=== PATIENT | male | born 1955 | race American Indian/Alaskan Native ===

== ENCOUNTER 2020-03-21 21:14 | Emergency (ER) | payer BC, OTHER ==
[~2020-03-21] VITALS: Ht 167.6 cm; Wt 108.9 kg
--- OUTSIDE RECORDS SUMMARY | ~2020-03-21 | XMS | Encounter Summary ---
Demographics + + + | Address | [address] | | | [place] [address] | + + + | Home Phone | | + + + | Preferred Language | Unknown | + + + | Marital Status | Unknown | + + + | Religion Affiliation | Unknown | + + + | Race | Unknown | + + + | Ethnic Group | Not or | + + + Author + + + | Author | [facility] | | | and [place] | + + + | Organization | [facility] | | | and [place] | + + + | Address | Unknown | + + + | Phone | Unavailable | + + + Support + + +---------+ + | Name | Relationship | Address | Phone | + + +---------+ + | Laurent Meza | ECON | Unknown | | + + +---------+ + Care Team Providers + +------+ + | Care Mutual Fund Sales Agent Name | Role | Phone | + +------+ + | Argentina Garza | PCP | | + +------+ + Encounter Details +--------+ + + + + | Date | Type | Department | Care Team | Description | +--------+ + + + + | 10/30/ | Orders Only | [facility] | Erik Patton | Gross hematuria | | 2020 | | [address] | MD Layne [address] | (Primary Dx) | | | | [place] | [place], [place] | | | | | [address] | [address] | | | | | [phone] | | | +--------+ + + + + Social History + +-------+ +--------+------+ | Tobacco Use | Types | Packs/Day | Years | Date | | | | | Used | | + +-------+ +--------+------+ | Never Smoker | | | | | + +-------+ +--------+------+ + +---+---+---+ | Smokeless Tobacco: | | | | | Never Used | | | | + +---+---+---+ + + + | Sex Assigned at | Date Recorded | | | | + + + | Not on file | | + + + documented as of this encounter Plan of Treatment Not on filedocumented as of this encounter Results Creatinine (11/01/2019 9:01 AM PDT) + + + + + + | Component | Value | Ref Range | Performed | Pathologist | | | | | At | Signature | + + + + + + | Creatinine | 0.99 | 0.70 - 1.30 | [facility] | | | | | mg/dL | [facility] | | | | | | [facility] | | | | | | [facility] - | | | | | | LABORATORY | | + + + + + + | eGFR, | >60Comment: GLOMERULAR | >=60 | [facility] | | | non- | FILTRATION | mL/min/1.73m2 | [facility] | | | [place] | RATE,ESTIMATED | | MEDICAL | | | | mL/min/1.02e1Afnu than | | CENTER - | | | | 60 Chronic kidney | | LABORATORY | | | | disease,if found over a | | | | | | 3-month period.Less than | | | | | | 15 Kidney failureFor | | | | | | | | | | | | Americans,multiply the | | | | | | calculated GFR by 1.21. | | | | | | | | | | + + + + + + + + | Specimen | + + | Blood | + + + + + + + | Performing | Address | City/State/Zipcode | Phone Number | | Organization | | | | + + + + + | [facility] | [address] | [place] | [phone] | | [facility] | | [address] | | | - LABORATORY | | | | + + + + + BUN (11/01/2019 9:01 AM PDT) + +-------+ + + + | Component | Value | Ref Range | Performed | Pathologist | | | | | At | Signature | + +-------+ + + + | BUN | 15 | 9 - 23 mg/dL | [facility] | | | | | | [facility] | | | | | | MEDICAL | | | | | | CENTER - | | | | | | LABORATORY | | + +-------+ + + + + + | Specimen | + + | Blood | + + + + + + + | Performing | Address | City/State/Zipcode | Phone Number | | Organization | | | | + + + + + | [facility] | [address] | [place] | [phone] | | [facility] | | [address] | | | - LABORATORY | | | | + + + + + documented in this encounter Visit Diagnoses + + | Diagnosis | + + | Gross hematuria - Primary | + + documented in this encounter"
--- OUTSIDE RECORDS SUMMARY | ~2020-03-21 | XMS | Encounter Summary ---
Demographics + + + | Address | [address] | | | [place] [address] | + + + | Home Phone | | + + + | Preferred Language | Unknown | + + + | Marital Status | Unknown | + + + | Cheondoism Affiliation | Unknown | + + + | Race | Unknown | + + + | Ethnic Group | Not or | + + + Author + + + | Author | [facility] | | | and [place] | + + + | Organization | [facility] | | | and [...] Team Providers + +------+ + | Care Rotogravure Press Operator Name | Role | Phone | + +------+ + | Argentina Garza | PCP | | + +------+ + Reason for Referral Diagnostic/Screening (Routine) +--------+--------+ + + + + | Status | Reason | Specialty | Diagnoses / | Referred By | Referred To | | | | | Procedures | Contact | Contact | +--------+--------+ + + + + | Closed | | Radiology | Diagnoses | [place], | [address] | | | | | Gross | Erik | [place] | | | | | hematuria | MD Layne | [place], | | | | | Procedures | [address] | [place] [address] | | | | | [address] U[address]gram w | [address] [place] | Phone: | | | | | wo Contrast | [place], [place] | [phone] | | | | | [address] | [address] | Fax: | | | | | SCAN,ABDOMEN | Phone: | [phone] | | | | | AND | [phone] | | | | | | PELVIS,COMBO | Fax: | | | | | | | [phone] | | +--------+--------+ + + + + Reason for Visit + + + | Reason | Comments | + + + | New Patient | enlarged prostate | + + + Evaluate & Treat (Routine) +--------+--------+ + + + + | Status | Reason | Specialty | Diagnoses / | Referred By | Referred To | | | | | Procedures | Contact | Contact | +--------+--------+ + + + + | Closed | | Urology | Diagnoses | Hector, | Cur[place], | | | | | Enlarged | [place], [facility] NURSE | Erik Daarnulfo, | | | | | prostate | [id number] | MD [address] | | | | | Erectile | [address] | [place] | | | | | dysfunction | [place], | [place], [place] | | | | | due to | [place] [address] | [address] Phone: | | | | | diseases | Phone: | [phone] | | | | | classified | [phone] | Fax: | | | | | elsewhere | Fax: | [phone] | | | | | Type 2 | [phone] | | | | | | diabetes | | | | | | | mellitus | | | | | | | with other | | | | | | | specified | | | | | | | complication | | | | | | | (HCC) NEW/ | | | | | | | ENLARGED | | | | | | | PROSTATE, | | | | | | | ED/ HECTOR | | | | | | | Procedures | | | | | | | NEW PATIENT | | | +--------+--------+ + + + + Encounter Details +--------+---------+ + + + | Date | Type | Department | Care Team | Description | +--------+---------+ + + + | 10/19/ | Office | [facility] | Erik Patton | Gross hematuria | | 2020 | Visit | [address] | MD Layne [address] | (Primary Dx); | | | | [place], [place] | [address] [place] | Enlarged prostate; | | | | [address] | [address] | Hyperplasia of | | | | [phone] | | prostate with lower | | | | | | urinary tract | | | | | | symptoms (LUTS); | | | | | | Nocturia | +--------+---------+ + + + Social History + +-------+ [...] + + documented as of this encounter Last Filed Vital Signs + + + + + | Vital Sign | Reading | Time Taken | Comments | + + + + + | Blood Pressure | 110/64 | 10/20/2019 10:45 AM | | | | | PDT | | + + + + + | Pulse | 66 | 10/20/2019 10:45 AM | | | | | PDT | | + + + + + | Temperature | - | - | | + + + + + | Respiratory Rate | 16 | 10/20/2019 10:45 AM | | | | | PDT | | + + + + + | Oxygen Saturation | - | - | | + + + + + | Inhaled Oxygen | - | - | | | Concentration | | | | + + + + + | Weight | 106.1 kg (233 lb | 10/20/2019 10:45 AM | | | | 14.5 oz) | PDT | | + + + + + | Height | 167.6 cm (5' 6") | 10/20/2019 10:45 AM | | | | | PDT | | + + + + + | Body Mass Index | 37.75 | 10/20/2019 10:45 AM | | | | | PDT | | + + + + + documented in this encounter Progress Notes Erik Patton MD - 10/20/2019 11:00 AM PDTFormatting of this note might be differ ent from the original. Chief Complaint Patient presents with New Patient enlarged prostate HPI Gogre Meza is a 64 y.o. male patient of TELMA Stewart here today for evaluation o f enlarged prostate. Over the last month has noticed intermittent episodes of gross hematuria, frequency, urgenc y Hematuria resolved after about a week, but other symptoms have been persistant He denies any dysuria or incontinence Nocturia 0-4 per night Non smoker, No family history of kidney cancer or bladder cancer Started on flomax approx 2 weeks ago and has noticed improvement in symtoms PSA 2.23 Aug 2019 Assessment Gorge was seen today for new patient. Diagnoses and all orders for this visit: Gross hematuria - CT Urogram w wo Contrast; Future Enlarged prostate - POCT Urinalysis Hyperplasia of prostate with lower urinary tract symptoms (LUTS) Nocturia Plan Cysto, cytology, ct urogram 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 Diabetes mellitus type 2, controlled (HCC) ED (erectile dysfunction) Hammer toe Impotence Mixed hyperlipidemia Obesity Onychomycosis Rosacea Past Surgical History Past Surgical History: Procedure Laterality Date APPENDECTOMY Family History: Family History Problem Relation Age of Onset Diabetes Father Social History: Social History Tobacco Use Smoking status: Never Smoker Smokeless tobacco: Never Used No Known Allergies Medications: Current Outpatient Medications: atorvaSTATin (LIPITOR) 10 mg tablet, , Disp: , Rfl: celecoxib (CELEBREX) 100 mg capsule, , Disp: , Rfl: GLIPIZIDE XL 10 MG ER tablet, , Disp: , Rfl: hydroCHLOROthiazide 25 mg tablet, , Disp: , Rfl: JANUMET XR 50-1000 MG TB24, , Disp: , Rfl: lisinopril (PRINIVIL,ZESTRIL) 40 MG tablet, , Disp: , Rfl: SM ASPIRIN ADULT LOW STRENGTH 81 MG EC tablet, , Disp: , Rfl: tamsulosin (FLOMAX) 0.4 mg CAPS, , Disp: , Rfl: ROS Objective BP 110/64 | Pulse 66 | Resp 16 | Ht 1.676 m (5' 6") | Wt 106.1 kg (233 lb 14.5 oz) | B GA 37.75 kg/m General Appearance: Alert, cooperative, no distress, appears stated age Head: Normocephalic, without obvious abnormality, atraumatic Eyes: conjunctiva/corneas clear, EOM's intact Throat: Lips, mucosa, and tongue normal; no gross deformities, mmm Neck: Supple, symmetrical, no adenopathy Lungs: Regular, unlabored breathing MS No CVA tenderness, no spinal tenderness, no scoliosis present Abdomen: Soft, non-tender, no masses Extremities: Extremities normal, atraumatic, no cyanosis, clubbing, or edema Pulses: Radial pulses 2+ and symmetric Skin: Warm and dry Lymph nodes: Cervical and supraclavicular nodes normal Neurologic: Gait normal, CN 2-12 grossly intact; Strength and sensation grossly normal in b ilateral upper and lower extremities Data: REVIEW OF SYSTEMS: [x] Marked All Negative Constitutional Symptoms: [] Fever [] Chills [] Headache [] Change in appetite [] Change in weight [] Change in energy [] Other: Neurological: [] Tremors [] Dizzy Spells [] Numbness/Tingling [] Seizures [] Other: Endocrine: [] Excessive thirst [] Too hot [] Too cold [] Tired/Sluggish Gastrointestinal: [] Abdominal pain [] Nausea/Vomiting [] Indigestion/heartburn [] Change in stoo l size [] Change in stool shape [] Change in stool color [] Pain with swallowing [] Other: Cardiovascular: [] Chest Pain [] Rapid heart rate [] High blood pressure [] Other: Integumentary: [] Skin rash [] Boils [] Persistent itch [] Other: Musculoskeletal: [] Neck Pain [] Joint swelling/pain [] Back pain [] Bone pain [] Other: Respiratory: [] Wheezing [] Frequent cough [] Shortness of breath [] Other: Hematologic/Lymphatic: [] Swollen glands [] Blood clotting issues [] Prior blood transfusions []Other: Psychologic: Are you generally satisfied with your life? yes Do you feel severely depressed? no Have you considered suicide? no Habits: Do you smoke? no Results for orders placed or performed in visit on 10/20/19 POCT Urinalysis Result Value Ref Range Color, UA, POC Yellow Yellow, Light Yellow Clarity, UA, POC Clear Glucose, UA, POC Negative Negative Bilirubin, UA, POC Negative Negative Ketones, UA, POC Negative Negative, 100 mg/dL Specific [place], UA, POC 1.015 1.001 - 1.030 Blood, UA, POC Negative Negative pH, UA, POC 6.0 5.0, 6.0, 7.0, 8.0, 5.5, 6.5, 7.5 Protein, UA, POC Negative Negative Urobilinogen, UA, POC 0.2 0.2, Negative, Normal, < 0.2 mg/dL, 1 mg/dL, < 0.2 E.U./dl, 1.0 E.U./dL, 0.2 mg/dL Nitrite, UA, POC Negative Negative Leukocyte Esterase, UA, POC Negative Negative Remark No results found for: TELMA Schmidt's notes were reviewed in clinic today. Return for next available cysto.. This document was generated in part using voice recognition software. Frequent wrong word or sound-alike substitutions may have occurred due to the inherent limitations of the voice recognition software. Although I have attempted to edit the content, I have not thoroughly proofread this note, and travel counselor automobile club errors are very likely to occur. CC: TELMA Stewart documented in this encounter Plan of Treatment Not on filedocumented as of this encounter Procedures + +--------+ + + + | Procedure Name | Priori | Date/Time | Associated Diagnosis | Comments | | | ty | | | | + +--------+ + + + | POCT URINALYSIS, | Routin | 10/20/2019 | Enlarged prostate | Results for this | | AUTO WITH CONF | e | 10:49 AM | | procedure are in the | | | | PDT | | results section. | + +--------+ + + + documented in this encounter Results CT Urogram w wo Contrast (11/01/2019 10:00 AM PDT) + + | Specimen | + + | | + + + + + | Impressions | Performed At | + + + | 1. No suspicious renal collecting system mass, calculi, | [facility] | | hydronephrosis, or hydroureter. 2. Bilateral pars defects of L5 | | | with grade 1 anterolisthesis of L5 over S1. Otherwise multilevel, | | | mild to moderate degenerative changes of the lumbar spine with | | | multilevel moderate and severe neural foraminal narrowing. 3. | | | Fat-containing right inguinal hernia without inflammation. 4. | | | Diverticulosis. Dictated and Signed by: Patrick Marrero MD | | | Electronically signed: 11/01/2019 12:44 PM | | + + + + + + | Narrative | Performed At | + + + | CT UROGRAM W WO CONTRAST 11/01/2019 9:50 AM HISTORY: hematuria. | [facility] | | COMPARISON: None. PROTOCOL: Axial images of the abdomen and | | | pelvis were obtained before and after administration of 125 mL | | | Omnipaque 350. Coronal and sagittal reformations were acquired. | | | FINDINGS: LUNG BASE: Lung bases are clear. HEPATOBILIARY: The | | | liver demonstrates normal parenchyma. The gallbladder is normal. No | | | evidence of intrahepatic or extrahepatic biliary ductal dilatation. | | | SPLEEN: Normal parenchyma. No evidence of mass or splenomegaly. | | | PANCREASE: Normal parenchyma. No evidence of pancreatic ductal | | | dilation. ADRENAL GLANDS: No evidence of nodule, mass or suspicious | | | thickening. KIDNEYS: Subcentimeter hypodensity in the mid/upper pole | | | of the right kidney is too small to better characterize. No | | | suspicious renal pelvic or ureteral mucosal thickening or mass | | | formation. Ureters are well opacified with contrast. No suspicious | | | renal mass or calculi. BOWEL: The stomach is normal. Imaged small | | | bowel and colon demonstrate no acute findings. No evidence of | | | dilatation to suggest obstruction or abnormal bowel wall thickening. | | | Severe sigmoid and descending colonic diverticulosis without | | | inflammatory changes. VASCULATURE: Aorta is nonaneurysmal and without | | | evidence of dissection. LYMPH NODES: No enlarged lymph nodes are | | | visualized within the omentum or retroperitoneum. PERITONEUM: There | | | is no evidence for free fluid or free air. BLADDER: Unremarkable. | | | REPRODUCTIVE: Mild prosthetic gland hyperplasia. SOFT TISSUES: | | | Noninflamed fat-containing bilateral inguinal hernias. BONES: There | | | are no acute osseous abnormalities. Bilateral pars defects of L5 with | | | grade 1 anterolisthesis of L5 over S1. Otherwise multilevel, mild to | | | moderate degenerative changes of the lumbar spine with multilevel | | | moderate and severe neural foraminal narrowing. Chronic appearing | | | anterior wedge compression upon the fracture T12. | | + + + + + | Procedure Note | + + | Rafael, Rad Results In - 11/01/2019 12:[address] UROGRAM W WO CONTRAST 11/01/2019 9:50 | | AMHISTORY: hematuria.COMPARISON: None.PROTOCOL: Axial images of the abdomen and pelvis | | were obtained before and afteradministration of 125 mL Omnipaque 350. Coronal and | | sagittal reformationswere acquired.FINDINGS:LUNG BASE: Lung bases are clear. | | HEPATOBILIARY: The liver demonstrates normal parenchyma. The gallbladder isnormal. No | | evidence of intrahepatic or extrahepatic biliary ductal dilatation.SPLEEN: Normal | | parenchyma. No evidence of mass or splenomegaly.PANCREASE: Normal parenchyma. No | | evidence of pancreatic ductal dilation.ADRENAL GLANDS: No evidence of nodule, mass or | | suspicious thickening.KIDNEYS: Subcentimeter hypodensity in the mid/upper pole of the | | right kidney istoo small to better characterize. No suspicious renal pelvic or ureteral | | mucosalthickening or mass formation. Ureters are well opacified with contrast. | | Nosuspicious renal mass or calculi.BOWEL: The stomach is normal. Imaged small bowel and | | colon demonstrate no acutefindings. No evidence of dilatation to suggest obstruction or | | abnormal bowelwall thickening. Severe sigmoid and descending colonic diverticulosis | | withoutinflammatory changes.VASCULATURE: Aorta is nonaneurysmal and without evidence of | | dissection. LYMPH NODES: No enlarged lymph nodes are visualized within the omentum | | orretroperitoneum. PERITONEUM: There is no evidence for free fluid or free air.BLADDER: | | Unremarkable.REPRODUCTIVE: Mild prosthetic gland hyperplasia. SOFT TISSUES: Noninflamed | | fat-containing bilateral inguinal hernias.BONES: There are no acute osseous | | abnormalities. Bilateral pars defects of L5with grade 1 anterolisthesis of L5 over S1. | | Otherwise multilevel, mild tomoderate degenerative changes of the lumbar spine with | | multilevel moderate andsevere neural foraminal narrowing. Chronic appearing anterior | | wedge compressionupon the fracture T12.IMPRESSION: 1. No suspicious renal collecting | | system mass, calculi, hydronephrosis, orhydroureter.2. Bilateral pars defects of L5 | | with grade 1 anterolisthesis of L5 over S1.Otherwise multilevel, mild to moderate | | degenerative changes of the lumbar spinewith multilevel moderate and severe neural | | foraminal narrowing. 3. Fat-containing right inguinal hernia without inflammation.4. | | Diverticulosis.Dictated and Signed by: Patrick Marrero MD Electronically signed: | | 11/01/2019 12:44 PM | |PERITONEUM: There is no evidence for free fluid or free air. | |BLADDER: Unremarkable. | |REPRODUCTIVE: Mild prosthetic gland hyperplasia. | |SOFT TISSUES: Noninflamed fat-containing bilateral inguinal hernias. | |BONES: There are no acute osseous abnormalities. Bilateral pars defects of L5 | |with grade 1 anterolisthesis of L5 over S1. Otherwise multilevel, mild to | |moderate degenerative changes of the lumbar spine with multilevel moderate and | |severe neural foraminal narrowing. Chronic appearing anterior wedge compression | |upon the fracture T12. | | | |IMPRESSION: | |1. No suspicious renal collecting system mass, calculi, hydronephrosis, or | |hydroureter. | |2. Bilateral pars defects of L5 with grade 1 anterolisthesis of L5 over S1. | |Otherwise multilevel, mild to moderate degenerative changes of the lumbar spine | |with multilevel moderate and severe neural foraminal narrowing. | |3. Fat-containing right inguinal hernia without inflammation. | |4. Diverticulosis. | | | |Dictated and Signed by: Patrick Marrero MD | | Electronically signed: 11/01/2019 12:44 PM | + + + +---------+ + + | Performing | Address | City/State/Zipcode | Phone Number | | Organization | | | | + +---------+ + + | [facility] | | | | + +---------+ + + POCT Urinalysis (10/20/2019 10:49 AM PDT) + + + + + + | Component | Value | Ref Range | Performed | Pathologist | | | | | At | Signature | + + + + + + | Color, UA, | Yellow | Yellow, Light | | | | POC | | Yellow | | | + + + + + + | Clarity, | Clear | | | | | UA, POC | | | | | + + + + + + | Glucose, | Negative | Negative | | | | UA, POC | | | | | + + + + + + | Bilirubin, | Negative | Negative | | | | UA, POC | | | | | + + + + + + | Ketones, | Negative | Negative, 100 | | | | UA, POC | | mg/dL | | | + + + + + + | Specific | 1.015 | 1.001 - 1.030 | | | | [place], | | | | | | UA, POC | | | | | + + + + + + | Blood, UA, | Negative | Negative | | | | POC | | | | | + + + + + + | pH, UA, POC | 6.0 | 5.0, 6.0, 7.0, | | | | | | 8.0, 5.5, 6.5, | | | | | | 7.5 | | | + + + + + + | Protein, | Negative | Negative | | | | UA, POC | | | | | + + + + + + | Urobilinoge | 0.2 | 0.2, Negative, | | | | n, UA, POC | | Normal, < 0.2 | | | | | | mg/dL, 1 mg/dL, | | | | | | < 0.2 E.U./dl, | | | | | | 1.0 E.U./dL, | | | | | | 0.2 mg/dL | | | + + + + + + | Nitrite, | Negative | Negative | | | | UA, POC | | | | | + + + + + + | Leukocyte | Negative | Negative | | | | Esterase, | | | | | | UA, POC | | | | | + + + + + + | Remark | | | | | + + + + + + + + | Specimen | + + | Urine | + + documented in this encounter Visit Diagnoses + + | Diagnosis | + + | Gross hematuria - Primary | + + | Enlarged prostate Hypertrophy of prostate without urinary obstruction and other lower | | urinary tract symptoms (LUTS) | + + | Hyperplasia of prostate with lower urinary tract symptoms (LUTS) Unspecified | | hyperplasia of prostate with urinary obstruction and other lower urinary tract symptoms | | (LUTS) | + + | Nocturia | + + documented in this encounter
--- OUTSIDE RECORDS SUMMARY | ~2020-03-21 | XMS | Encounter Summary ---
Demographics + + + | Address | [address] | | | [place] [address] | + + + | Home Phone | | + + + | Preferred Language | Unknown | + + + | Marital Status | Unknown | + + + | Adventism Affiliation | Unknown | + + + | Race | Unknown | + + + | Ethnic Group | Not or | + + + Author + + + | Author | [facility] | | | and [place] | + + + | Organization | [facility] | | | and [...] Team Providers + +------+ + | Care Flight Test Engineer Name | Role | Phone | + [...] | | Gross | Erik | W Amado | | | | | hematuria | MD Layne | [place], | | | | | Procedures | [address] | [place] [address] | | | | | [address] | [address] [place] | Phone: | | | | | wo Contrast | [place], [place] | [phone] | | | | | [address] | [address] | Fax: | | | | | SCAN,ABDOMEN | Phone: | [phone] | | | | | AND | [phone] | | | | | | PELVIS,COMBO | Fax: | | | | | | | [phone] | | +--------+--------+ + + + + Reason for Visit Diagnostic/Screening (Routine) +--------+--------+ + + + + | Status | Reason | Specialty | Diagnoses / | Referred By | Referred To | | | | | Procedures | Contact | Contact | +--------+--------+ + + + + | Closed | | Radiology | Diagnoses | [place], | [address] | | | | | Gross | Erik | W Amado | | | | | hematuria | MD Layne | [place], | | | | | Procedures | [address] | [place] [address] | | | | | CT Urogram w | AVE [place] | Phone: | | | | | wo Contrast | [place], [place] | [phone] | | | | | [address] | [address] | Fax: | | | | | SCAN,ABDOMEN | Phone: | [phone] | | | | | AND | [phone] | | | | | | PELVIS,COM[place] | Fax: | | | | | | | [phone] | | +--------+--------+ + + + + Encounter Details +--------+ + + + + | Date | Type | Department | Care Team | Description | +--------+ + + + + | 10/31/ | Hospital | [facility] | Erik Patton | Bill aquino | | 2020 | Encounter | [address] | MD Layne [address] | | | | | [place], | [place] | | | | | [place] [address] | [id number] | | | | | [phone] | | | +--------+ + + + [...] + + documented as of this encounter Medications at Time of Discharge + + + +---------+ + + | Medication | Sig | Dispensed | Refills | Start | End Date | | | | | | Date | | + + + +---------+ + + | atorvaSTATin | | | 0 | //20 | | | (LIPITOR) 10 mg | | | | 20 | | | tablet | | | | | | + + + +---------+ + + | celecoxib | 200 mg . | | 0 | /20 | | | (CELEBREX) 200 mg | | | | 20 | | | capsule | | | | | | + + + +---------+ + + | fluticasone | | | 0 | //20 | | | (FLONASE) 50 | | | | 20 | | | mcg/nasal spray | | | | | | + + + +---------+ + + | GLIPIZIDE XL 10 MG | | | 0 | //20 | | | ER tablet | | | | 20 | | + + + +---------+ + + | | | | 0 | 03/10/20 | | | hydroCHLOROthiazide | | | | 20 | | | 25 mg tablet | | | | | | + + + +---------+ + + | JANUMET XR 50-1000 | | | 0 | 03/10/20 | | | MG TB24 | | | | 20 | | + + + +---------+ + + | lisinopril | | | 0 | 03/10/20 | | | (PRINIVIL,ZESTRIL) | | | | 20 | | | 40 MG tablet | | | | | | + + + +---------+ + + | SM ASPIRIN ADULT | | | 0 | 03/10/20 | | | LOW STRENGTH 81 MG | | | | 20 | | | EC tablet | | | | | | + + + +---------+ + + | tamsulosin | | | 0 | 10/17/19 | | | (FLOMAX) 0.4 mg CAPS | | | | 20 | | + + + +---------+ + + | TOPROL XL 100 MG | | | 0 | 10/27/19 | | | ER tablet | | | | 20 | | + + + +---------+ + + documented as of this encounter Plan of Treatment Not on filedocumented as of this encounter Procedures + +--------+ + + + | Procedure Name | Priori | Date/Time | Associated Diagnosis | Comments | | | ty | | | | + +--------+ + + + | CT UROGRAM W WO | Routin | 11/01/2019 | Gross hematuria | Results for this | | CONTRAST | e | 10:00 AM | | procedure are in the | | | | PDT | | results section. | + +--------+ + + + | BUN | Routin | 11/01/2019 | Gross hematuria | Results for this | | | e | 9:01 AM | | procedure are in the | | | | PDT | | results section. | + +--------+ + + + | CREATININE | Routin | 11/01/2019 | Gross hematuria | Results for this | | | e | 9:01 AM | | procedure are in the [...] | | | + +---------+ + + Creatinine (11/01/2019 9:01 AM PDT) + + + + + + | Component | Value | Ref Range | Performed | Pathologist | | | | | At | Signature | + + + + + + | Creatinine | 0.99 | 0.70 - 1.30 | [facility] | | | | | mg/dL | [facility] | | | | | | [facility] | | | | | | C[facility] - | | | | | | LABORATORY | | + + + + + + | eGFR, | >60Comment: GLOMERULAR | >=60 | [facility] | | | non- | FILTRATION | mL/min/1.73m2 | [facility] | | | Swiss | RATE,ESTIMATED | | MEDICAL | | | | mL/min/1.96a3Rild than | | CENTER - | | [...] | + + + + + | [facility] | [address] | [place] | [phone] | | [facility] | | [address] | | | - LABORATORY | | | | + + + + + BUN (11/01/2019 9:01 AM PDT) + +-------+ + + + | Component | Value | Ref Range | Performed | Pathologist | | | | | At | Signature | + +-------+ + + + | BUN | 15 | 9 - 23 mg/dL | [facility] | | | | | | [facility] | | | | [...] [address] | [place] | [phone] | | [facility] | | [address] | | | - LABORATORY | | | | + + + + + documented in this encounter Visit Diagnoses + + | Diagnosis | + + | Gross hematuria | + + documented in this encounter Administered Medications + +--------+ +---------+------+------+ | Medication Order | MAR | Action | Dose | Rate | Site | | | Action | Date | | | | + +--------+ +---------+------+------+ | iohexol (OMNIPAQUE 350) 350 | Given | 11/01/19 | 125 mLs | | | | mg/mL injection 125 mL 125 mL, | | 20 10:00 | | | | | Intravenous, ONCE PRN, Other, | | AM PDT | | | | | Starting 11/01/19 at 1000, For | | | | | | | 1 dose | | | | | | + +--------+ +---------+------+------+ +---+---+ | | | +---+---+ + +------+ +--------+-------+---+ | sodium chloride 0.9% (NS) bolus | Push | 11/01/19 | 85 mLs | 5100 | | | 85 mL 85 mL, Intravenous, | | 20 10:00 | | mL/hr | | | Administer over 1 Minutes, ONCE | | AM PDT | | | | | PRN, FOR CT IMAGING STUDY, | | | | | | | Starting 11/01/19 at 1000, For | | | | | | | 1 dose | | | | | | + +------+ +--------+-------+---+ +---+---+ | | | +---+---+ documented in this encounter"
--- OUTSIDE RECORDS SUMMARY | ~2020-03-21 | XMS | Encounter Summary ---
Demographics + + + | Address | [address] | | | [place] [address] | + + + | Home Phone | | + + + | Preferred Language | Unknown | + + + | Marital Status | Unknown | + + + | Latter Day Affiliation | Unknown | + + + | Race | Unknown | + + + | Ethnic Group | Not or | + + + Author + + + | Author | [facility] | | | and [place]idiana | + + + | Organization | [facility] | | | [...] Team Providers + +------+ + | Care Esthetic Dermatologist Name | Role | Phone | + +------+ + | Argentina Garza | PCP | | + +------+ + Reason for Visit + + + | Reason | Comments | + + + | Follow-up | Cystoscopy for gross hematuria | + + + Follow Up (Routine) +--------+--------+ + + + + | Status | Reason | Specialty | Diagnoses / | Referred By | Referred To | | | | | Procedures | Contact | Contact | +--------+--------+ + + + + | Closed | | Urology | Diagnoses | Greg, | Abdi, | | | | | Enlarged | TELMA Elaine | Erik Tillman, | | | | | prostate | [address] | MD [address] | | | | | CYSTOSCOPY | OXANA SOTOMAYOR | [place] | | | | | (Hematuria) | [place], | [place] | | | | | [place] for | [place] [address] | [address] Phone: | | | | | Cytology// | Phone: | [phone] | | | | | CT prior | [phone] | Fax: | | | | | Procedures | Fax: | [phone] | | | | | OFFICE VISIT | [phone] | | | | | | EXTENDED | | | +--------+--------+ + + + + Encounter Details +--------+---------+ + + + | Date | Type | Department | Care Team | Description | +--------+---------+ + + + | 10/31/ | Office | [facility] | Erik Patton | Abnormal urinalysis | | 2020 | Visit | [address] | MD Layne [address] | (Primary Dx); Gross | | | | [place] | [address] [place] | hematuria | | | | [address] | [address] | | | | | [phone] | | | +--------+---------+ + + + Social History [...] + + + | Blood Pressure | 112/62 | 11/01/2019 10:51 AM | | | | | PDT | | + + + + + | Pulse | 60 | 11/01/2019 10:51 AM | | | | | PDT | | + + + + + | Temperature | - | - | | + + + + + | Respiratory Rate | 16 | 11/01/2019 10:51 AM | | | | | PDT | | + + + + + | Oxygen Saturation | - | - | | + + + + + | Inhaled Oxygen | - | - | | | Concentration | | | | + + + + + | Weight | 106.1 kg (233 lb | 11/01/2019 10:51 AM | | | | 14.5 oz) | PDT | | + + + + + | Height | 167.6 cm (5' 6") | 11/01/2019 10:51 AM | | | | | PDT | | + + + + + | Body Mass Index | 37.75 | 11/01/2019 10:51 AM | | | | | PDT | | + + + + + documented in this encounter Progress Notes Erik Patton MD - 11/01/2019 11:00 AM PDTFormatting of this note might be differ ent from the original. Chief Complaint Patient presents with Follow-up Cystoscopy for gross hematuria HPI Gorge Meza is a 64 y.o. male patient of TELMA Stewart here today for a Cystoscopy for gross hematuria. Consent form signed & time out form completed Over the last month has noticed intermittent episodes of gross hematuria, frequency, urgenc y Hematuria resolved after about a week, but other symptoms have been persistant He denies any dysuria or incontinence Nocturia 0-4 per night Non smoker, No family history of kidney cancer or bladder cancer Started on flomax approx 2 weeks ago and has noticed improvement in symtoms Cystoscopy Preprocedure timeout was performed. The patient's genitals were then prepped and draped us ual fashion. 10 mL's of viscous lidocaine was instilled per urethra. The scope was then in troduced into the urethra. The anterior urethra was grossly normal. The posterior urethra w as noted for very mild lateral lobe coaptation. Upon entering the bladder mayen cystoscopy was performed. Bilateral UOs were identified in the normal anatomic position effluxing clear u rine.1-2+ trabeculations were noted. There are no mucosal abnormalities seen. The scope wa s then removed and the patient tolerated the procedure well. PSA 2.23 Aug 2019 Assessment Gorge was seen today for follow-up. Diagnoses and all orders for this visit: Abnormal urinalysis - POCT Urinalysis - Urinalysis, Microscopic Only, with Culture if Indicated Gross hematuria - Medical Cytology Plan Negative cystoscopic evaluation of the bladder. Will await final review of the patient's C T scan from radiology however I do not see any significant causes for the patient's hematuri a. 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 Diabetes mellitus type 2, controlled (HCC) ED (erectile dysfunction) Hammer toe Impotence Mixed hyperlipidemia Obesity Onychomycosis Rosacea Past Surgical History Past Surgical History: Procedure Laterality Date APPENDECTOMY Family History: Family History Problem Relation Age of Onset Diabetes Father Prostate cancer Neg Hx Social History: Social History Socioeconomic History Marital status: Unknown Spouse name: Not on file Number of children: Not on file Years of education: Not on file Highest education level: Not on file Tobacco Use Smoking status: Never Smoker Smokeless tobacco: Never Used No Known Allergies Medications: Current Outpatient Medications: atorvaSTATin (LIPITOR) 10 mg tablet, , Disp: , Rfl: celecoxib (CELEBREX) 100 mg capsule, , Disp: , Rfl: fluticasone (FLONASE) 50 mcg/nasal spray, , Disp: , Rfl: GLIPIZIDE XL 10 MG ER tablet, , Disp: , Rfl: hydroCHLOROthiazide 25 mg tablet, , Disp: , Rfl: JANUMET XR 50-1000 MG TB24, , Disp: , Rfl: lisinopril (PRINIVIL,ZESTRIL) 40 MG tablet, , Disp: , Rfl: SM ASPIRIN ADULT LOW STRENGTH 81 MG EC tablet, , Disp: , Rfl: tamsulosin (FLOMAX) 0.4 mg CAPS, , Disp: , Rfl: TOPROL XL 100 MG ER tablet, , Disp: , Rfl: No current facility-administered medications for this visit. ROS Objective BP 112/62 | Pulse 60 | Resp 16 | Ht 1.676 m (5' 6") | Wt 106.1 kg (233 lb 14.5 oz) | B AK 37.75 kg/m General Appearance: Alert, cooperative, no [...] b ilateral upper and lower extremities Data: Results for orders placed or performed in visit on 11/01/19 Urinalysis, Microscopic Only, with Culture if Indicated Result Value Ref Range White Blood Cells, Urine 0-2 0 - 2 /HPF White Blood Cell Clumps, Urine Few (A) None Seen /HPF RBC UA 0-2 0 - 2 /HPF Squamous Epithelial Cells, Urine 0-2 0 - 2 /LPF BACTERIA UA Negative Negative /HPF URINE COMMENT Urine Culture Not Indicated POCT Urinalysis Result Value Ref Range Color, UA, POC Light Yellow Yellow, Light Yellow Clarity, UA, POC Clear Glucose, UA, POC Negative Negative Bilirubin, UA, POC Negative Negative Ketones, UA, POC Negative Negative, 100 mg/dL Specific [place], UA, POC 1.005 1.001 - 1.030 Blood, UA, POC Trace Intact (A) Negative pH, UA, POC 5.5 5.0, 6.0, 7.0, 8.0, 5.5, 6.5, 7.5 Protein, UA, POC Negative Negative Urobilinogen, UA, POC 0.2 0.2, Negative, Normal, < 0.2 mg/dL, 1 mg/dL, < 0.2 E.U./dl, 1.0 E.U./dL, 0.2 mg/dL Nitrite, UA, POC Negative Negative Leukocyte Esterase, UA, POC Negative Negative Remark Lab Results Component Value Date CREA 0.99 11/01/2019 TELMA Stewart's notes were reviewed in clinic today. No follow-ups on file.. This document was generated in part using voice recognition software. Frequent wrong word or sound-alike substitutions may have occurred due to the inherent limitations of the voice recognition software. Although I have attempted to edit the content, I have not thoroughly proofread this note, and school commissioner errors are very likely to occur. CC: TELMA Stewart documented in this encounter Plan of Treatment Not on filedocumented as of this encounter Procedures + +--------+ + + + | Procedure Name | Priori | Date/Time | Associated Diagnosis | Comments | | | ty | | | | + +--------+ + + + | URINALYSIS, | Routin | 11/01/2019 | Abnormal | Results for this | | MICROSCOPIC ONLY, | e | 11:15 AM | urinalysis | procedure are in the | | WITH CULTURE IF | | PDT | | results section. | | INDICATED | | | | | + +--------+ + + + | POCT URINALYSIS, | Routin | 11/01/2019 | Abnormal | Results for this | | AUTO WITH CONF | e | 11:14 AM | urinalysis | procedure are in the | | | | PDT | | results section. | + +--------+ + + + | MEDICAL CYTOLOGY | Routin | 11/01/2019 | Gross hematuria | Results for this | | | e | 12:00 AM | | procedure are in the | | | | PDT | | results section. | + +--------+ + + + documented in this encounter Results Urinalysis, Microscopic Only, with Culture if Indicated (11/01/2019 11:15 AM PDT) + + + + + + | Component | Value | Ref Range | Performed | Pathologist | | | | | At | Signature | + + + + + + | White Blood | 0-2 | 0 - 2 /HPF | [facility] | | | Cells, | | | [facility] | | | Urine | | | MEDICAL | | | | | | CENTER - | | | | | | LABORATORY | | + + + + + + | White Blood | Few (A) | None Seen /HPF | [facility] | | | Cell | | | [facility] | | | Clumps, | | | MEDICAL | | | Urine | | | CENTER - | | | | | | LABORATORY | | + + + + + + | Red Blood | 0-2 | 0 - 2 /HPF | [facility] | | | Cells, | | | [facility] | | | Urine | | | MEDICAL | | | | | | CENTER - | | | | | | LABORATORY | | + + + + + + | Squamous | 0-2 | 0 - 2 /LPF | [facility] | | | Epithelial | | | [facility] | | | Cells, | | | MEDICAL | | | Urine | | | CENTER - | | | | | | LABORATORY | | + + + + + + | Bacteria, | Negative | Negative /HPF | [facility] | | | Urine | | | [facility] | | | | | | MEDICAL | | | | | | CENTER - | | | | | | LABORATORY | | + + + + + + | Urine | Urine Culture Not | | [facility] | | | Comment | Indicated | | [facility] | | | | | | MEDICAL | | | | | | CENTER - | | | | | | LABORATORY | | + + + + + + + + | Specimen | + + | Urine - Urine | | specimen obtained by | | clean catch | | procedure (specimen) | + + + + + + + | Performing | Address | City/State/Zipcode | Phone Number | | Organization | | | | + + + + + | [facility] | [address] | [place] | [phone] | | [facility] | | [address] | | | - LABORATORY | | | | + + + + + POCT Urinalysis (11/01/2019 11:14 AM PDT) + + + + + + | Component | Value | Ref Range | Performed | Pathologist | | | | | At | Signature | + + + + + + | Color, UA, | Light Yellow | Yellow, Light | | | [...] + + + + | Specific | 1.005 | 1.001 - 1.030 | | | | [place], | | | | | | UA, POC | | | | | + + + + + + | Blood, UA, | Trace Intact (A) | Negative | | | | POC | | | | | + + + + + + | pH, UA, POC | 5.5 | 5.0, 6.0, 7.0, | | | [...] + + | Urine | + + Medical Cytology (11/01/2019 12:00 AM PDT) + + | Specimen | + + | Urine - Urine | | specimen obtained by | | clean catch | | procedure (specimen) | + + + + + | Narrative | Performed At | + + + | ORDERING PHYSICIAN: Erik Patton MD PATIENT NAME: | [facility] | | GORGE MEZA GENDER: Rj : 1955 SPECIMEN(S): A | [facility] | | URINE, CLEAN CATCH GROSS DESCRIPTION: 90 ML OF CLEAR, YELLOW | | | FLUID IN CYTOLYT CLINICAL HISTORY: NO CLINICAL DATA PROVIDED | | | LABORATORY PREPARATIONS: 1 MONOLAYER CYTOLOGIC INTERPRETATION: | | | Urine, Voided: Negative for High Grade Urothelial Carcinoma ([facility]). | | | Acute inflammatory / cystitis pattern present. DESCRIPTION: The | | | preparation is adequately cellular. Numerous acute inflammatory cells | | | are present. Cytologic features of high grade urothelial carcinoma | | | are absent. SPECIMEN ADEQUACY: Satisfactory for Evaluation | | | PERFORMING LABORATORY: Technical preparation was performed by [facility] | | | [employer] [address] [place] [address] and | | | [employer] | | | [address]. Professional interpretation was performed by [facility] | | | Diagnostics - [address] | | | [place] [address] (Collections Manager: Rei Humphrey MD.; | | | [facility]#:[id number]).8 Diagnostician: Lorraine OSORIO ([facility]) | | | Patient Intake Representative Diagnostician: Coery Desouza MD Pathologist | | | Electronically Signed 11/03/2019 | | + + + + +---------+ + + | Performing | Address | City/State/Zipcode | Phone Number | | Organization | | | | + +---------+ + + | [facility] | | | | | [facility] | | | | + +---------+ + + documented in this encounter Visit Diagnoses + + | Diagnosis | + + | Abnormal urinalysis - Primary Other nonspecific finding on examination of urine | + + | Gross hematuria | + + documented in this encounter
--- OUTSIDE RECORDS SUMMARY | ~2020-03-21 | XMS | Clinical Summary ---
Demographics + + + | Address | [address] | | | [place] [address] | + + + | Home Phone | | + + + | Preferred Language | Unknown | + + + | Marital Status | Unknown | + + + | Taoism Affiliation | Unknown | + + + | Race | Unknown | + + + | Ethnic Group | Not or | + + + Author + + + | Author | [facility] | | | and [place] | + + + | Organization | [facility] | | | [...] Team Providers + +------+ + | Care Ceiling Cleaner Name | Role | Phone | + +------+ + | Argentina GarzaP | PCP | | + +------+ + Allergies No Known Allergies Medications + + + +---------+------+------+-------+ | Medication | Sig | Dispensed | Refills | Star | End | Statu | | | | | | t | Date | s | | | | | | Date | | | + + + +---------+------+------+-------+ | SM ASPIRIN ADULT | | | 0 | 03/1 | | Activ | | LOW STRENGTH 81 MG | | | | 0/20 | | e | | EC tablet | | | | 20 | | | + + + +---------+------+------+-------+ | atorvaSTATin | | | 0 | 02/0 | | Activ | | (LIPITOR) 10 mg | | | | 4/20 | | e | | tablet | | | | 20 | | | + + + +---------+------+------+-------+ | celecoxib | 200 mg . | | 0 | 02/0 | | Activ | | (CELEBREX) 200 mg | | | | 4/20 | | e | | capsule | | | | 20 | | | + + + +---------+------+------+-------+ | GLIPIZIDE XL 10 MG | | | 0 | 03/1 | | Activ | | ER tablet | | | | 0/20 | | e | | | | | | 20 | | | + + + +---------+------+------+-------+ | | | | 0 | 03/1 | | Activ | | hydroCHLOROthiazide | | | | 0/20 | | e | | 25 mg tablet | | | | 20 | | | + + + +---------+------+------+-------+ | lisinopril | | | 0 | 03/1 | | Activ | | (PRINIVIL,ZESTRIL) | | | | 0/20 | | e | | 40 MG tablet | | | | 20 | | | + + + +---------+------+------+-------+ | JANUMET XR 50-1000 | | | 0 | 03/1 | | Activ | | MG TB24 | | | | 0/20 | | e | | | | | | 20 | | | + + + +---------+------+------+-------+ | tamsulosin | | | 0 | 03/3 | | Activ | | (FLOMAX) 0.4 mg CAPS | | | | 1/20 | | e | | | | | | 20 | | | + + + +---------+------+------+-------+ | fluticasone | | | 0 | 04/1 | | Activ | | (FLONASE) 50 | | | | 0/20 | | e | | mcg/nasal spray | | | | 20 | | | + + + +---------+------+------+-------+ | TOPROL XL 100 MG | | | 0 | 04/1 | | Activ | | ER tablet | | | | 0/20 | | e | | | | | | 20 | | | + + + +---------+------+------+-------+ | sildenafil | Take 1 tablet by | 20 | 1 | 07/0 | 07/0 | Activ | | (VIAGRA) 100 MG | mouth as needed for | tablet | | 6/20 | 6/20 | e | | tablet | Erectile | | | 20 | 21 | | | | Dysfunction. | | | | | | + + + +---------+------+------+-------+ | | Tri-Mix X: Inject 10 | 5 mL | 3 | 07/0 | | Activ | | Xtsmv-Mjozyhvaoclf-W | units into the base | | | 7/20 | | e | | lprostadil 12-1-0.01 | of penis, increase | | | 20 | | | | MG/ML SOLN | dose by 5-10 units | | | | | | | | to reach desired | | | | | | | | effect. Max dose 50 | | | | | | | | units.. | | | | | | + + + +---------+------+------+-------+ | tamsulosin | Take 1 capsule by | 60 | 11 | 07/0 | 08/0 | Expir | | (FLOMAX) 0.4 mg CAPS | mouth 2 times daily | capsule | | 6/20 | 5/20 | ed | | | for 30 days. | | | 20 | 20 | | + + + +---------+------+------+-------+ Active Problems No known active problems Encounters +--------+ + + + + | Date | Type | Specialty | Care Team | Description | +--------+ + + + + | 01/22/ | Telephone | Urology | Erik Patton | Medication Question | | 2019 | | | MD [place] | | +--------+ + + + + | 01/21/ | Office | Urology | Erik Patton | Erectile | | 2019 | Visit | | MD [place] | dysfunction, | | | | | | unspecified erectile | | | | | | dysfunction type | | | | | | (Primary Dx); | | | | | | Hyperplasia of | | | | | | prostate with lower | | | | | | urinary tract | | | | | | symptoms (LUTS); | | | | | | Nocturia | +--------+ + + + + from Last 3 Months Family History + + +------+ + | Medical History | Relation | Name | Comments | + + +------+ + | Diabetes | Father | | | + + +------+ + | Prostate cancer | Neg Hx | | | + + +------+ + + +------+ + + | Relation | Name | Status | Comments | + +------+ + + | Father | | | | + +------+ + + | Mother | | | | + +------+ + + Social History + +-------+ +--------+------+ [...] on file | | + + + Last Filed Vital Signs + + + + + | Vital Sign | Reading | Time Taken | Comments | + + + + + | Blood Pressure | 160/80 | 01/22/2020 1:00 PM | | | | | PDT | | + + + + + | Pulse | 80 | 01/22/2020 1:00 PM | | | | | PDT | | + + + + + | Temperature | - | - | | + + + + + | Respiratory Rate | 16 | 01/22/2020 1:00 PM | | | | | PDT | | + + + + + | Oxygen Saturation | - | - | | + + + + + | Inhaled Oxygen | - | - | | | Concentration | | | | + + + + + | Weight | 105.5 kg (232 lb 9.4 | 01/22/2020 1:00 PM | | | | oz) | PDT | | + + + + + | Height | 167.6 cm (5' 6") | 01/22/2020 1:00 PM | | | | | PDT | | + + + + + | Body Mass Index | 37.54 | 01/22/2020 1:00 PM | | | | | PDT | | + + + + + Plan of Treatment + + + + + | Health Maintenance | Due Date | Last | Comments | | | | Done | | + + + + + | Hepatitis C | | | | | Screening | 5 | | | + + + + + | Med Mgmt: HBA1C | | | | | | 5 | | | + + + + + | Med Mgmt: K | | | | | | 5 | | | + + + + + | Med Mgmt: Na | | | | | | 5 | | | + + + + + | Medication | | | | | Management | 5 | | | + + + + + | Colorectal Cancer | | | | | Screening | 5 | | | | (Colonoscopy) | | | | + + + + + | Vaccine: Zoster (2 | | 02/03/20 | | | of 3) | 6 | 16 | | + + + + + | Vaccine: Influenza | | 04/26/20 | | | (#1) | 0 | 19, | | | | | 04/19/20 | | | | | 18, | | | | | 04/29/20 | | | | | 17, | | | | | Addition | | | | | al | | | | | history | | | | | exists | | + + + + + | Med Mgmt: BUN | | 11/01/19 | | | | 1 | 20 | | + + + + + | Med Mgmt: Cr | | 11/01/19 | | | | 1 | 20 | | + + + + + | Med Mgmt: eGFR | | 11/01/19 | | | | 1 | 20 | | + + + + + | Vaccine: | | 12/16/19 | | | Dtap/Tdap/Td (2 - | 2 | 12, | | | Td) | | 01/21/20 | | | | | 05, | | | | | 04/23/19 | | | | | 95 | | + + + + + Results Not on filefrom Last 3 Months Insurance + +--------+ +--------+-------+---------+--------+ | Payer | Benefi | Subscriber | Effect | Phone | Address | Type | | | t Plan | ID | philipp | | | | | | / | | Dates | | | | | | Group | | | | | | + +--------+ +--------+-------+---------+--------+ | BCBS | BCBS | [id number] | 07/19/19 | | | PPO | | | FEDERA | | 16-Pre | | | | | | L FEP | | sent | | | | + +--------+ +--------+-------+---------+--------+ | [facility] [facility] | IHS | [id number] | | | | Indemn | | SERVICE | YELLOW | | 020-Pr | | | ity | | | HAWK | | esent | | | | + +--------+ +--------+-------+---------+--------+ + +--------+ +--------+ + + | Guarantor Name | Accoun | Relation to | Date | Phone | Billing Address | | | t Type | Patient | of | | | | | | | | | | + +--------+ +--------+ + + | Gorge Meza | Person | Self [birth year] | [address] | | | al/Fam | | 1955 | [phone] | [place] [address] | | | alejandro | | | 3 (Home) | | + +--------+ +--------+ + + | Gorge Meza | Person | Self [birth year] | [address] | | | al/Fam | | 1955 | [phone] | [place] [address] | | | alejandro | | | 3 (Home) | | + +--------+ +--------+ + + Advance Directives + + + + + | Type | Date Recorded | Patient | Explanation | | | | Nurse Discharge | | + + + + + | Power of | | | | | Fire Protection Fabricator | | | | + + + + + | Advance | | | | | Directive | | | | + + + + +
--- OUTSIDE RECORDS SUMMARY | ~2020-03-21 | XMS | Encounter Summary ---
Demographics + + + | Address | [address] | | | [place] [address] | + + + | Home Phone | | + + + | Preferred Language | Unknown | + + + | Marital Status | Unknown | + + + | Latter-Day Affiliation | Unknown | + + + | Race | Unknown | + + + | Ethnic Group | Not or | + + + Author + + + | Author | [facility] | | | and [place] | + + + | Organization | [facility] | | [...] Team Providers + +------+ + | Care Sumac Tanner Name | Role | Phone | + +------+ + | Argentina Garza | PCP | | + +------+ + Reason for Visit + +--------+ + | Reason | Onset | Comments | | | Date | | + +--------+ + | Medication Question | 01/22/ | | | | 2020 | | + +--------+ + Encounter Details +--------+ + + + + | Date | Type | Department | Care Team | Description | +--------+ + + + + | 01/22/ | Telephone | [facility] | Erik Patton | Medication Question | | 2020 | | [address] | MD [place] [address] | | | | | [place] | [address] [place] | | | | | [phone] | [address] | | | | | [phone] | | | +--------+ + + + [...] + + documented as of this encounter Miscellaneous Notes Telephone Encounter - Danyelle Land RN - 01/23/2020 3:16 PM NORBERTBrooke [phone] a [facility] pharmacy said they limit the strength and quantity of Viagra. He may #20 20 mg tablets per month. Also they cannot compound medication so he cannot get the Tri-Mix. Dr Gisselle wilder notified, okay to change Viagra order. Also he requests Tri Mix be sent to [facility] pharmacy, e-scribed. documented in this encounter Plan of Treatment Not on filedocumented as of this encounter Visit Diagnoses Not on filedocumented in this encounter"
--- OUTSIDE RECORDS SUMMARY | ~2020-03-21 | XMS | Encounter Summary ---
Demographics + + + | Address | [address] | | | [place] [address] | + + + | Home Phone | | + + + | Preferred Language | Unknown | + + + | Marital Status | Unknown | + + + | Confucianist Affiliation | Unknown | + + + | Race | Unknown | + + + | Ethnic Group | Not or | + + + Author + + + | Author | [facility] | | | and [place] | + + + | Organization | [facility] | | | [...] Team Providers + +------+ + | Care Pattern Grader Cutter Name | Role | Phone | + +------+ + | Argentina Garza | PCP | | + +------+ + Reason for Visit + + + | Reason | Comments | + + + | Follow-up | | + + + | Erectile Dysfunction | | + + + Follow Up (Routine) +--------+--------+ + + + + | Status | Reason | Specialty | Diagnoses / | Referred By | Referred To | | | | | Procedures | Contact | Contact | +--------+--------+ + + + + | Closed | | Urology | Diagnoses | Greg, | Abdi, | | | | | Dee | TELMA Elaine | Erik Tillman, | | | | | dysfunction | [address] | MD [address] | | | | | FOLLOW UP/ | OXANA SOTOMAYOR | [place] | | | | | NEW DX/ ED | [place], | [place] | | | | | Procedures | [place] [address] | [address] Phone: | | | | | OFFICE VISIT | Phone: | [phone] | | | | | EXTENDED | [phone] | Fax: | | | | | | Fax: | [phone] | | | | | | [phone] | | +--------+--------+ + + + + Encounter Details +--------+---------+ + + + | Date | Type | Department | Care Team | Description | +--------+---------+ + + + | 01/21/ | Office | [facility] | Erik Patton | Erectile | | 2020 | Visit | [address] | MD [place] [address] | dysfunction, | | | | [place], [place] | [address] | unspecified erectile | | | | [address] | [address] | dysfunction type | | | | [phone] | | (Primary Dx); | | | [...] encounter Progress Notes Erik Patton MD - 01/22/2020 1:00 PM PDTFormatting of this note might be differ ent from the original. Chief Complaint Patient presents with Follow-up Erectile Dysfunction HPI Gorge Meza is a 64 y.o. male patient of TELMA Stewart here today for a follow up for Erectile Dysfunction. History of gross hematuria and lower urinary tract symptoms Takes Flomax PSA 2.23 Aug 2019 During last clinic visit the patient was evaluated for gross hematuria. This was negative. He presents today to discuss his erectile dysfunction. ED Over the past few months, erections have not been hard enough for penetration No morning erections Has tried viagra(unknown dosage) with mixed results History of diabetes hypertension and obesity however the patient has lost significant amoun ts of weight Assessment Gorge was seen today for follow-up and erectile dysfunction. Diagnoses and all orders for this visit: Erectile dysfunction, unspecified erectile dysfunction type Hyperplasia of prostate with lower urinary tract symptoms (LUTS) Nocturia Other orders - tamsulosin (FLOMAX) 0.4 mg CAPS; Take 1 capsule by mouth 2 times daily for 30 days. - sildenafil (VIAGRA) 100 MG tablet; Take 1 tablet by mouth as needed for Erectile Dysf unction. - Etitf-Ocmuceetqtoe-Pfzmaqdwdeh 12-1-0.01 MG/ML SOLN; Tri-Mix X: Inject 10 units into the base of penis, increase dose by 5-10 units to reach desired effect. Max dose 50 units.. Plan Flomax renewed viagra Trimix, Separate appointment if needed to learn how to inject himself We discussed that the etiology for the patient's erectile dysfunction is likely multifactor ial including diabetes, hypertension and obesity related. I encouraged the patient to bonita nue his efforts at weight loss as well as exercise. We discussed common side effects associated with Viagra and the contraindication to taking medications with nitrates while taking Viagra. Past Medical History Past Medical History: Diagnosis [...] tablet, , Disp: , Rfl: celecoxib (CELEBREX) 200 mg capsule, 200 mg ., Disp: , Rfl: fluticasone (FLONASE) 50 mcg/nasal spray, , Disp: , Rfl: GLIPIZIDE XL 10 MG ER tablet, , Disp: , Rfl: hydroCHLOROthiazide 25 mg tablet, , Disp: , Rfl: JANUMET XR 50-1000 MG TB24, , Disp: , Rfl: lisinopril (PRINIVIL,ZESTRIL) 40 MG tablet, , Disp: , Rfl: Ptuyl-Qjepvgkshmub-Ebvgglomaos 12-1-0.01 MG/ML SOLN, Tri-Mix X: Inject 10 units into t he base of penis, increase dose by 5-10 units to reach desired effect. Max dose 50 units.., Disp: 5 mL, Rfl: 3 sildenafil (VIAGRA) 100 MG tablet, Take 1 tablet by mouth as needed for Erectile Dysfu nction., Disp: 20 tablet, Rfl: 1 SM ASPIRIN ADULT LOW STRENGTH 81 MG EC tablet, , Disp: , Rfl: tamsulosin (FLOMAX) 0.4 mg CAPS, , Disp: , Rfl: tamsulosin (FLOMAX) 0.4 mg CAPS, Take 1 capsule by mouth 2 times daily for 30 days., D isp: 60 capsule, Rfl: 11 TOPROL XL 100 MG ER tablet, , Disp: , Rfl: Review of Systems Constitutional: Negative for chills and fever. Respiratory: Negative for cough and wheezing. Cardiovascular: Negative for chest pain, palpitations and orthopnea. Genitourinary: Negative for dysuria, flank pain and hematuria. Objective BP 160/80 | Pulse 80 | Resp 16 | Ht 1.676 m (5' 6") | Wt 105.5 kg (232 lb 9.4 oz) | BM I 37.54 kg/m General Appearance: Alert, cooperative, no distress, appears stated age Head: Normocephalic, without obvious abnormality, atraumatic Eyes: conjunctiva/corneas clear, EOM's intact Throat: Lips, mucosa, and tongue normal; no gross deformities, mmm Neck: Supple, symmetrical, no adenopathy Lungs: Regular, labored breathing MS No CVA tenderness, no spinal tenderness, no scoliosis present Abdomen: Soft, non-tender, no masses Extremities: Extremities normal, atraumatic, no cyanosis, clubbing, or edema Neurologic: Gait normal, CN 2-12 grossly intact; Strength and sensation grossly normal in b ilateral upper and lower extremities Data: Results for orders placed or performed during the hospital encounter of 11/01/19 BUN Result Value Ref Range BUN 15 9 - 23 mg/dL Creatinine Result Value Ref Range Creatinine 0.99 0.70 - 1.30 mg/dL eGFR if not >60 >=60 mL/min/1.73m2 Lab Results Component Value Date CREA 0.99 11/01/2019 TELMA Stewart's notes were reviewed in clinic today. Return if symptoms worsen or fail to improve.. This document was generated in part using voice recognition software. Frequent wrong word or sound-alike substitutions may have occurred due to the inherent limitations of the voice recognition software. Although I have attempted to edit the content, I have not thoroughly proofread this note, and video production assistant errors are very likely to occur. CC: TELMA Stewart documented in this encounter Plan of Treatment Not on filedocumented as of this encounter Visit Diagnoses + + | Diagnosis | + + | Erectile dysfunction, unspecified erectile dysfunction type - Primary | + + | Hyperplasia of prostate with lower urinary tract symptoms (LUTS) Unspecified | | hyperplasia of prostate with urinary obstruction and other lower urinary tract symptoms | | (LUTS) | + + | Nocturia | + + documented in this encounter
[~2020-03-21 21:14] MED LIST: ASPIRIN EC81 MG PO; BENTYL20 MG PO; CALCIUM500 M1 PO; HYDROCHLOROTHIA25 MG PO; JANUVIA100 MG PO; LISINOPRIL40 MG PO; METFORMIN HCL1000 MG PO; METOPROLOL SUCC50 MG PO; PRILOSEC20 MG PO; SIMVASTATIN10 MG PO; VITAMIN D5000 UNIT PO
--- NOTE | 2020-03-22 13:26 | EKG ---
[facility] [address] [facility] [place] [address] Signed Normal sinus rhythm Left axis deviation Right bundle branch block Abnormal ECG No previous ECGs available Confirmed by GI FRAIRE MD ([id number]) on 03/22/2020 1:26:05 PM Electronically Signed By: GI FRAIRE MD 03/22/20 1326 PATIENT NAME: KELLIE JARAMILLO Electrocardiogram DATE OF : 55 PHYSICIAN: GI FRAIRE MD REPORT #: [id number] REPORT IS CONFIDENTIAL AND NOT TO BE RELEASED WITHOUT AUTHORIZATION
== END 2020-03-22 00:32 | disposition home or self-care (01) ==
LOC: ED 21:14
DX: T40.4X1A Poisoning by other synthetic narcotics, accidental (unintentional), initial encounter (principal); E11.9 Type 2 diabetes mellitus without complications; I10 Essential (primary) hypertension; E78.5 Hyperlipidemia, unspecified; Z79.899 Other long term (current) drug therapy; Z79.82 Long term (current) use of aspirin
CPT/HCPCS: 71045; 80053; 81001; 83735; 84484; 85025; 93005; 93010; 99285-25

== ENCOUNTER 2020-07-09 01:32 | Observation (INO) | payer BC, OTHER ==
[~2020-07-09] VITALS: Ht 167.6 cm; Wt 111.3 kg
[~2020-07-09 01:32] MED LIST changes: -CALCIUM500 M1 PO; +CALCIUM500 MG PO
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
--- NOTE | 2020-07-09 05:40 | NUR ---
ASSESSMENT COMPLETE. PT ALERT AND ORIENTED. SCHEDULED TYLENOL ADMINISTERED. IVF INFUSING. CLEAR LIQUIDS PROVIDED. DRESSING TO RIGHT CHEST CDI. STERI STRIPS TO LEFT SIDE OF CHEST INTACT. NO DRAINAGE NOTED. STERI STRIPS TO CHIN INTACT. ORIENTATION TO ROOM AND NURSE CALL LIGHT PROVIDED. PT DENIES QUESTIONS OR CONCERNS AT THIS TIME. CALL LIGHT IN REACH.
--- NOTE | 2020-07-09 06:39 | NUR ---
POST-OP VITALS COMPLETE. PT SIPPING CLEAR LIQUIDS. DENIES NAUSEA. CALL LIGHT IN REACH.
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
[2020-07-09] MEDS ORDERED: ATORVASTATIN CA10 MG PO (08:22)
[2020-07-09] MEDS ORDERED: GLIPIZIDE XL10 MG PO (08:23)
[2020-07-09] MEDS ORDERED: JANUMET XR 50-1 EAC1 PO (08:23)
[2020-07-09] MEDS ORDERED: SILDENAFIL20 MG PO (08:26)
[2020-07-09] MEDS ORDERED: TAMSULOSIN HCL0.4 MG PO (08:26)
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
--- NOTE | 2020-07-09 09:25 | NUR ---
SPOKE WITH PATIENT AGAIN. HE STATES HE LEFT MESSAGE FOR OFFICER. WHILE I WAS IN ROOM SOMEONE WAS CALLING IN ON HIS ROOM PHONE. WILL CHECK BACK LATER.
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
[2020-07-09] MEDS ORDERED: VITAMIN B-121000 MCG PO (10:32)
[2020-07-09] MEDS ORDERED: METOPROLOL SUC100 MG PO (10:50)
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
[2020-07-09] MEDS ORDERED: HYDROCODON-ACE1 EA10 PO (10:59)
--- NOTE | 2020-07-09 11:04 | NUR ---
PATIENT SITTING UP IN BED WATCHING TV. CALL LIGHT INR EACH. NO FURTHER NEEDS AT THIS TIME.
--- NOTE | 2020-07-09 11:24 | NUR ---
MED REC COMPLETE
--- NOTE | 2020-07-09 12:30 | NUR ---
DISCHARGE INSTRUCTIONS COMPLETED WITH PT. IV CATH X2 REMOVED. OUTER DRESSING TO RIGHT SHOULDER CHANGED, GAUZE PACKING LEFT IN PLACE. PT PROVIDED WITH DRESSING CHANGE SUPPLIED. DETAILED WOUND CARE COMPLETED WITH PT. PT AWAITING TO HEAR FROM [facility] [employer] [employer]ON[employer].
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
--- NOTE | 2020-07-09 14:01 | NUR ---
LEFT MESSAGE AT [facility] FOR [employer] NURSE. SHE RETURNED MY CALL. DISCUSSED THIS PATIENT TO SEE IF THEY COULD HELP IN GETTING HIM HOME. SHE IS FAMILIAR WITH HIM. SHE HAD PHONE NUMBER OF NEPHEW ON CHART AND GAVE IT TO ME [phone]. SHE ALSO STATES IF HE CAN'T GET [employer] OF NEPHEW TO CALL [facility] [phone] AND THEY COULD POSSIBLE MEET HIM AND LET HIM INTO HOME. TOOK THIS TO ROOM, BUT PATIENT WAS DISCHARGED ALREADY. PATIENT HAD LEFT WITH [facility] [employer] ACCORDING TO STAFF.
== END 2020-07-09 13:30 | disposition home or self-care (01) ==
LOC: ED 01:32 → MS 01:34
PROVIDERS: ADMIT Surgery; ATTEND Surgery
PROC: 0HQCXZZ Repair Left Upper Arm Skin, External Approach (ICD-10-PCS; 2020-07-09)
PROC: 0HQBXZZ Repair Right Upper Arm Skin, External Approach (ICD-10-PCS; 2020-07-09)
PROC: 0HQ1XZZ Repair Face Skin, External Approach (ICD-10-PCS; principal; 2020-07-09 02:50)
PROC: 0HQ5XZZ Repair Chest Skin, External Approach (ICD-10-PCS; 2020-07-09 02:50)
DX: S41.031A Puncture wound without foreign body of right shoulder, initial encounter (principal); S21.132A Puncture wound without foreign body of left front wall of thorax without penetration into thoracic cavity, initial encounter; S21.131A Puncture wound without foreign body of right front wall of thorax without penetration into thoracic cavity, initial encounter; S01.81XA Laceration without foreign body of other part of head, initial encounter; S01.511A Laceration without foreign body of lip, initial encounter; G89.29 Other chronic pain; E11.9 Type 2 diabetes mellitus without complications; I10 Essential (primary) hypertension; X99.9XXA Assault by unspecified sharp object, initial encounter; E78.5 Hyperlipidemia, unspecified; Z79.84 Long term (current) use of oral hypoglycemic drugs; Z79.82 Long term (current) use of aspirin; Z79.899 Other long term (current) drug therapy; Z20.828 Contact with and (suspected) exposure to other viral communicable diseases
CPT/HCPCS: 00300; 71045; 80053; 82150; 82550; 83605; 83690; 85025; 86850; 86900; 86901; 90471; 90715; 96374; 96375; 99285-25; C9803; G0378; G0480; J0330; J0690; J1100; J1885; J2250; J2405; J2704; J2765; J3010; J7030; J7121; U0003

== ENCOUNTER 2020-12-18 13:16 | Emergency (ER) | payer BC, OTHER ==
[~2020-12-18] VITALS: Ht 167.6 cm; Wt 102.1 kg
[~2020-12-18 13:16] MED LIST changes: +ATORVASTATIN CA10 MG PO; +GLIPIZIDE XL10 MG PO; +HYDROCODON-ACE1 EA10 PO; +JANUMET XR 50-1 EAC1 PO; +METOPROLOL SUC100 MG PO; +SILDENAFIL20 MG PO; +TAMSULOSIN HCL0.4 MG PO; +VITAMIN B-121000 MCG PO
[2020-12-18] MEDS ORDERED: DICLOFENAC SOD100 G1 TP (13:29)
--- NOTE | 2020-12-18 16:39 | EKG ---
[facility] [address] [facility] [place] [address] Signed Normal sinus rhythm Right bundle branch block Left anterior fascicular block Bifascicular block Abnormal ECG When compared with ECG of 21-MAR-2020 21:52, No significant change was found Confirmed by GI FRAIRE MD ([id number]) on 12/18/2020 4:39:27 PM Electronically Signed By: GI FRAIRE MD 12/18/20 1639 PATIENT NAME: KELLIE JARAMILLO Electrocardiogram DATE OF : 55 PHYSICIAN: GI FRAIRE MD REPORT #: [id number] REPORT IS CONFIDENTIAL AND NOT TO BE RELEASED WITHOUT AUTHORIZATION
== END 2020-12-18 17:28 | disposition home or self-care (01) ==
LOC: ED 13:16
DX: R55 Syncope and collapse (principal); E86.0 Dehydration; E11.9 Type 2 diabetes mellitus without complications; I10 Essential (primary) hypertension; E78.5 Hyperlipidemia, unspecified; Z79.899 Other long term (current) drug therapy; Z79.82 Long term (current) use of aspirin
CPT/HCPCS: 71045; 80053; 81001; 83735; 84484; 85025; 93005; 93010; 99284-25

== ENCOUNTER 2021-10-21 08:43 | Emergency (ER) | payer BC, OTHER ==
[~2021-10-21] VITALS: Ht 167.6 cm; Wt 106.9 kg
[~2021-10-21 08:43] MED LIST changes: +DICLOFENAC SOD100 G1 TP
[2021-10-21] MEDS ORDERED: HYDROCHLOROTHIA25 MG PO (09:07)
--- NOTE | 2021-10-23 17:26 | EKG ---
[facility] [address] [facility] [place] [address] Signed Normal sinus rhythm Right bundle branch block Left anterior fascicular block Bifascicular block Abnormal ECG When compared with ECG of 18-DEC-2020 13:51, No significant change was found Confirmed by WILLIAM VALE MD ([id number]) on 10/23/2021 5:26:32 PM Electronically Signed By: WILLIAM VALE MD 10/23/21 1726 PATIENT NAME: KELLIE JARAMILLO Electrocardiogram DATE OF : 55 PHYSICIAN: WILLIAM VALE MD REPORT #: [id number] REPORT IS CONFIDENTIAL AND NOT TO BE RELEASED WITHOUT AUTHORIZATION
== END 2021-10-21 15:25 | disposition home or self-care (01) ==
LOC: ED 08:43
DX: S09.90XA Unspecified injury of head, initial encounter (principal); R53.1 Weakness; B88.2 Other arthropod infestations; R60.0 Localized edema; I10 Essential (primary) hypertension; E11.9 Type 2 diabetes mellitus without complications; E78.5 Hyperlipidemia, unspecified; Z79.899 Other long term (current) drug therapy; Z79.82 Long term (current) use of aspirin; Z20.822 Contact with and (suspected) exposure to COVID-19; W19.XXXA Unspecified fall, initial encounter; W22.8XXA Striking against or struck by other objects, initial encounter
CPT/HCPCS: 36415; 70450; 71045; 80053; 83880; 84484; 85025; 93005; 93010; 96374; 99285-25; J1940; U0003

== ENCOUNTER 2023-05-19 19:05 | Emergency (ER) | payer BC, OTHER ==
[~2023-05-19] VITALS: Ht 167.6 cm; Wt 101.0 kg
[2023-05-19 22:09] LABS: HEMATOCRIT 34.4 % (35.0-50.0); MCH 26.1 (27-36); MCHC 32.1 g/dl (30-36); MCV 81.2 fl (81-99); PLATELET COUNT 503 K/uL (140-440); RBC 4.23 M/ul (4.3-5.7); RDW 16.6 (10.5-15.0)
[2023-05-19 22:24] LABS: BANDS, MANUAL DIFF 8; EOSINOPHILS, MANUAL DIFF 1; LYMPHOCYTES, MANUAL DIFF 10; MONOCYTES, MANUAL DIFF 4; NEUTROPHILS, MANUAL DIFF 77
[2023-05-20] MEDS ORDERED: HYDROCODON-ACE1 EA10 PO (00:12)
[2023-05-20] MEDS ORDERED: BACTRIM DS TAB1 EACH PO (00:12)
[2023-05-20 00:39] VITALS: BP 116/74
== END 2023-05-20 00:40 | disposition home or self-care (01) ==
LOC: ED 19:05
PROVIDERS: Family Medicine
DX: L03.116 Cellulitis of left lower limb (principal); M10.9 Gout, unspecified; E11.9 Type 2 diabetes mellitus without complications; E78.5 Hyperlipidemia, unspecified; I10 Essential (primary) hypertension; Z79.82 Long term (current) use of aspirin; Z79.84 Long term (current) use of oral hypoglycemic drugs; Z79.899 Other long term (current) drug therapy
CPT/HCPCS: 36415; 73700; 84550; 85025; 86140; A9270; J2270; Q9967

== ENCOUNTER 2023-11-18 13:38 | Emergency (ER) | payer BC, OTHER ==
[~2023-11-18] VITALS: Ht 167.6 cm; Wt 112.0 kg
[~2023-11-18 13:38] MED LIST changes: +BACTRIM DS TAB1 EACH PO
--- OUTSIDE RECORDS SUMMARY | 2023-11-18 13:39 | XMS ---
PreManage Notification: KELLIE JARAMILLO [employer] Events No recent Security Events currently on file [facility] PROVIDERS There are no care providers on record at this time. Luigi has no Care Guidelines for this patient. Jack VISIT COUNT (12 MO.) 2 MCKENZIE Cee TOTAL 2 NOTE: Visits indicate total known visits. ED/UCC VISIT TRACKING (12 MO.) 11/18/2023 13:38 MCKENZIE Mello [place] TYPE: Emergency COMPLAINT: - POSS OD 05/19/2023 19:08 MCKENZIE Mello [place] TYPE: Emergency COMPLAINT: - LEFT ANKLE PAIN/ NO INJURY DIAGNOSES: - Cellulitis of left lower limb - Essential (primary) hypertension - Gout, unspecified - Hyperlipidemia, unspecified - intermediate (current) use of aspirin - intermediate (current) use of oral hypoglycemic drugs - Other long term acute care registered nurse (current) drug therapy - Pain in left ankle and joints of left foot - Type 2 diabetes mellitus without complications INPATIENT VISIT TRACKING (12 MO.) No inpatient visits to display in this time frame [email or web address]
[2023-11-18 13:52] LABS: BASOPHILS 0.9 % (0-2); EOSINOPHILS 6.7 % (0-6); HEMATOCRIT 37.2 % (35.0-50.0); LYMPHOCYTES 21.6 % (24-44); MCH 27.5 (27-36); MCHC 32.3 g/dl (30-36); MCV 85.2 fl (81-99); MONOCYTES 9.6 % (0-12); NEUTROPHILS 61.2 % (39-80); PLATELET COUNT 312 K/uL (140-440); RBC 4.37 M/ul (4.3-5.7); RDW 15.6 (10.5-15.0)
[2023-11-18] MEDS ORDERED: ondansetron HCL 4 MG/2 ML VIAL IV ONE (14:00)
[2023-11-18 14:10] LABS: ALBUMIN 3.4 g/dL (3.4-5.0); ALBUMIN/GLOBULIN RATIO 0.79 (1.1-2.4); ANION GAP 16.7 (7-21); BILIRUBIN, TOTAL 0.8 ng/dL (0.2-1.0); BUN/CREATININE RATIO 14.2 (6.0-28.6); CREATININE, SERUM 1.76 mg/dL (0.70-1.30); POTASSIUM 4.7 mmol/L (3.5-5.1); PROTEIN, TOTAL 7.7 g/dL (6.4-8.2)
[2023-11-18 14:13] LABS: LACTIC ACID, BLOOD 5.8 mmol/L (0.4-2.0)
[2023-11-18] MEDS ORDERED: SODIUM CHLORIDE 0.9% 1,000 ML IV PRN (14:15)
[2023-11-18 14:19] LABS: INR 1.05 (0.80-1.30); PARTIAL THROMBOPLASTIN TIME 24.9 Sec (22.9-41.3)
[2023-11-18 15:19] LABS: LACTIC ACID, BLOOD 2.4 mmol/L (0.4-2.0)
[2023-11-18 15:27] LABS: BILIRUBIN, URINE NEGATIVE (negative); BLOOD/HGB, URINE TRACE-I (Negative); KETONE, URINE NEGATIVE (Negative); LEUK ESTERASE, URINE TRACE (negative); NITRITE, URINE NEGATIVE (negative); PH, URINE 5.5 (5-7)
[2023-11-18 15:39] LABS: BACTERIA, URINE NONE SEEN /hpf (negative); CASTS, URINE NONE SEEN \\lpf; COLLECTION TYPE, URINE CLEAN CATCH; CRYSTALS, URINE NONE SEEN (0-1+); EPITHELIAL CELLS, URINE SQUAMOUS 1+ /lpf (0-1+); RED BLOOD CELLS, URINE 0-1 /hpf (0-5); REFLEX CULTURE, URINE No (No)
[2023-11-18 15:42] LABS: AMPHETAMINES, URINE NEGATIVE (NEGATIVE); BARBITURATES, URINE NEGATIVE (NEGATIVE); BENZODIAZEPINE, URINE NEGATIVE (NEGATIVE); BUPRENORPHINE, URINE NEGATIVE (NEGATIVE); CANNABINOID, URINE NEGATIVE (NEGATIVE); COCAINE, URINE NEGATIVE (NEGATIVE); ECSTASY, URINE NEGATIVE (NEGATIVE); FENTANYL, URINE POSITIVE (NEGATIVE); METHADONE, URINE NEGATIVE (NEGATIVE); OPIATES, URINE NEGATIVE (NEGATIVE); OXYCODONE, URINE NEGATIVE (NEGATIVE); PHENCYCLIDINE, URINE NEGATIVE (NEGATIVE)
[2023-11-18] MEDS ORDERED: NARCAN4 MG NAS (18:29)
[2023-11-18] MEDS ORDERED: NALOXONE 4 MG NASAL SPRAY #2 HOME.PACK NAS ONE (18:30)
[2023-11-18 18:40] VITALS: BP 116/60
--- NOTE | 2023-11-22 07:18 | EKG ---
[facility] [address] [facility] [place] [address] Signed Normal sinus rhythm Right bundle branch block Left anterior fascicular block Bifascicular block Septal infarct , age undetermined Abnormal ECG When compared with ECG of 21-OCT-2021 08:54, No significant change was found Confirmed by Renita Gamboa MD ([id number]) on 11/22/2023 7:18:53 AM Electronically Signed By: RENITA GAMBOA 11/22/23 0718 PATIENT NAME: KELLIE JARAMILLO Electrocardiogram DATE OF : 55 PHYSICIAN: RENITA GAMBOA REPORT #: [id number] REPORT IS CONFIDENTIAL AND NOT TO BE RELEASED WITHOUT AUTHORIZATION
== END 2023-11-18 18:40 | disposition home or self-care (01) ==
LOC: ED 13:38
PROVIDERS: Emergency Medicine
DX: T40.411A Poisoning by fentanyl or fentanyl analogs, accidental (unintentional), initial encounter (principal); E11.9 Type 2 diabetes mellitus without complications; I10 Essential (primary) hypertension; E78.5 Hyperlipidemia, unspecified; M10.9 Gout, unspecified; Z79.82 Long term (current) use of aspirin; Z79.84 Long term (current) use of oral hypoglycemic drugs; Z79.899 Other long term (current) drug therapy
CPT/HCPCS: 36415; 70450; 71045; 80053; 80307; 81001; 83605; 83880; 85025; 85610; 85730; 93005; 93010; 96374; 99285-25; J2405; J3490; J7030